=== PATIENT | male | born 1990 | race Caucasian/White ===

== ENCOUNTER 2018-03-13 13:17 | Outpatient (REF) | payer MEDICARE, MEDICAID, SELFPAY ==
[2018-03-13 19:51] LABS: Vitamin D 25 Total 18.5 ng/ml (30-100)
[2018-03-13 19:56] LABS: ALT 19 U/L (12-78); AST 20 U/L (15-37); Albumin 4.1 g/dL (3.4-5.0); Alkaline Phosphatase 86 U/L (46-116); Anion Gap 11.2 mmol/L (3-11); BUN 10 mg/dL (7-18); Bilirubin, Total 0.6 mg/dL (0.2-1.0); CO2 25.8 mmol/L (21.0-32.0); CREATININE 0.93 mg/dL (0.70-1.30); Calcium 9.4 mg/dL (8.5-10.1); Chloride 103 mmol/L (98-107); Cholesterol 217 mg/dL (50-200); Folate 12.7 ng/mL (8.6-20.0); Glucose 79 mg/dL (70-100); HDL Cholesterol 44 mg/dL (40-60); LDL CHOLESTEROL 158 mg/dL (<100); Potassium 4.2 mmol/L (3.5-5.1); Sodium 140 mmol/L (136-145); TSH (W/Ref FT4) 0.74 uIU/mL (0.358-3.74); Total Protein 7.5 g/dL (6.4-8.2); Triglyceride 56 mg/dL (30-150); Vitamin B12 230 pg/mL (193-986)
[2018-03-15 09:03] LABS: HIV-1/2 Ag & Ab Screen Negative (NEGAT)
[2018-03-15 09:20] LABS: Hepatitis C Ab w Rflx HCV PCR Negative (NEGAT)
[2018-03-15 10:20] LABS: Hepatitis B Surface Ag Negative (NEGAT)
[2018-03-15 12:02] LABS: Syphilis Serology (RPR) Negative (Negative)
== END 2018-03-13 13:37 ==
LOC: NCHCN 13:17
PROVIDERS: PCP Nurse Practitioner; Visit Provider Nurse Practitioner Family
DX: F41.0 Panic disorder [episodic paroxysmal anxiety] (principal); F31.73 Bipolar disorder, in partial remission, most recent episode manic; E55.9 Vitamin D deficiency, unspecified; E78.89 Other lipoprotein metabolism disorders; F43.10 Post-traumatic stress disorder, unspecified; F12.10 Cannabis abuse, uncomplicated; Z11.4 Encounter for screening for human immunodeficiency virus [HIV]; Z11.59 Encounter for screening for other viral diseases
CPT/HCPCS: 80053; 80061; 82306; 83721; 86803; 87340; 87389; 82607; 82746; 84443; 86592

== ENCOUNTER → 2019-07-25 13:12 | Outpatient (BNVA) | payer MEDICARE, MEDICAID, SELFPAY | PROVIDERS: PCP Nurse Practitioner; Referring Provider Nurse Practitioner; Visit Provider Psychiatry & Neurology Neurology | DX: R41.89 Other symptoms and signs involving cognitive functions and awareness (principal); R68.89 Other general symptoms and signs; R56.9 Unspecified convulsions | CPT/HCPCS: 99204; 99215 ==

== ENCOUNTER 2019-08-02 01:47 | Outpatient (CLI) | payer MEDICARE, MEDICAID, SELFPAY ==
--- NOTE | 2019-08-02 13:30 | DI.MRI_ITS ---
EXAM: MR BRAIN WO CLINICAL HISTORY: seizure R56.9 CONVULSIONS. TECHNIQUE: Multiplanar multisequence MRI was performed. COMPARISON: No exams were available for comparison FINDINGS: MR examination of brain was performed according to the usual protocol additional T2 weighted coronal imaging. Ventricular system is normal in appearance. There are numerous small focal areas of abnormal signal in periventricular and subcortical white matter, most markedly in the frontal lobes bilaterally. No other focal signal abnormality identified in the brain. No focal brainstem lesions. The orbital and temporal bone structures appear intact. Pituitary appears intact. There is normal flow void in the uhtuja-yg-Scwdvl vasculature. Diffusion weighted imaging shows no evidence of diffusion restriction. Susceptibility weighted imagi ng shows no evidence of intracranial hemorrhage. IMPRESSION: Bilateral white matter areas of abnormal signal, most prominent in right and left frontal lobes. Fin dings are nonspecific, including demyelinating process, infectious or inflammatory causes, sarcoidosi s, etc. Additional evaluation with contrast-enhanced brain MRI is suggested. DATA REPOSITORY:
== END 2019-08-02 02:07 ==
PROVIDERS: PCP Nurse Practitioner; Visit Provider Psychiatry & Neurology Neurology
DX: R56.9 Unspecified convulsions (principal); R90.82 White matter disease, unspecified
CPT/HCPCS: 70551

== ENCOUNTER 2019-08-06 03:41 | Outpatient (CLI) | payer MEDICARE, MEDICAID, SELFPAY ==
--- NOTE | 2019-08-14 09:05 | PDOC.EEG_ITS ---
Neurology EEG EEG: [facility] Department of Neurology LONG-TERM AMBULATORY EEG REPORT Date of Recordin08/06/19 at 13:37:49 to 08/07/19 at 13:12:38 Interpreting Physician: Dr. Adali Hebert PCP/Referring Provider: Vandana Paulson NP Reason for study: Mr. Horne is a 29 year-old man with a history of childhood seizures and a recent unwittnessed event of LOC. Current Medications: None. METHODS: An 18-channel digitized electroencephalogram was recorded in the ambulatory setting with video. The 10/20 international system of electrode placement was used and bipolar and referential electrode montages were recorded. In addition to EEG the patient was monitored for EKG and by video. Activation procedures of photic stimulation and hyperventilation were performed if applicable. The duration of the recording was ~23.5 hours. DESCRIPTION OF EEG: Waking background activity: During maximal wakefulness an 11-Hz posterior background rhythm was present which was well-modulated, symmetrical, reactive to eye opening, and of moderate voltage. Faster frequencies were present in the bilateral anterior head regions. There was a normal anterior-posterior voltage gradient. Drowsy and sleeping background activity: During drowsiness, there was attenuation of the posterior dominant background rhythm and vertex waves. Normal stage II and III sleep was present with symmetrical sleep spindles, K- complexes, and vertex waves with slowing of the background rhythm to delta/theta frequencies. REM sleep manifested by rapid lateral eye movements and faster background rhythms was recorded. Arousal was unremarkable. Interictal abnormalities: none. Ictal findings: No events recorded. Activating Procedures: Photic stimulation was performed which produced a symmetrical posterior driving response at various flash frequencies. Hyperventilation was performed with moderate effort and produced mild physiological slowing of the background. He briefly had a cold sensation in his head during this time. EKG: EKG revealed normal sinus rhythm. INTERPRETATION: This long-term EEG is normal during the awake and sleep states as well as during the activation procedures. PRIOR EEG: none CLINICAL CORRELATION: No focal regions of cerebral dysfunction or epileptiform activity was present. Epilepsy remains a clinical diagnosis and a normal EEG does not rule out epilepsy. Clinical correlation is advised. Adali Hebert MD
== END 2019-08-06 04:01 ==
PROVIDERS: PCP Nurse Practitioner; Visit Provider Psychiatry & Neurology Neurology
DX: R41.89 Other symptoms and signs involving cognitive functions and awareness (principal); Z86.69 Personal history of other diseases of the nervous system and sense organs; G40.909 Epilepsy, unspecified, not intractable, without status epilepticus
CPT/HCPCS: 95714; 95720

== ENCOUNTER → 2020-10-14 14:47 | Outpatient (BNVA) | payer MEDICARE, MEDICAID, SELFPAY | PROVIDERS: PCP Nurse Practitioner; Referring Provider Nurse Practitioner; Visit Provider Psychiatry & Neurology Neurology | DX: R93.0 Abnormal findings on diagnostic imaging of skull and head, not elsewhere classified (principal); R41.89 Other symptoms and signs involving cognitive functions and awareness; R73.03 Prediabetes | CPT/HCPCS: 99213 ==

== ENCOUNTER 2020-11-03 02:02 | Outpatient (CLI) | payer MEDICARE, MEDICAID, SELFPAY ==
--- NOTE | 2020-11-03 07:45 | DI.MRI_ITS ---
Exam(s) MR BRAIN WO EXAM: MR BRAIN WO CLINICAL HISTORY: abnNORMal brain MRI; looking for changes,R93.0 TECHNIQUE: Multiplanar multisequence MRI of the brain was performed. COMPARISON: MR MR BRAIN WO from 08/02/2019 FINDINGS: CEREBRAL PARENCHYMA: There is no evidence of intracranial hemorrhage, mass effect, or shift of midline structures. There are no extra-axial fluid collections. Ventricles are not enlarged or shifted. There is no significant focal signal abnormality in the cerebellar hemispheres nor within the peaec, m idbrain, and thalami. The previously described multiple small foci FLAIR bright signal foci in the periventricular and subc ortical white matter appear unchanged. No obvious new additional findings. No evidence of restricted diffusion on the diffusion imaging sequence. No evidence of microhemorrhag es on susceptibility imaging. PITUITARY GLAND: No mass nor parasellar abnormality. No obvious abnormality in the cavernous sinuses. FLOW VOIDS: The expected flow void are noted. No evidence of obvious aneurysm nor obvious vascular ma lformation. PARANASAL SINUSES: There is circumferential mucosal thickening in the inferior aspects of both maxill sophie sinuses, slightly more so than previous but not associated with fluid levels. Sphenoid sinuses a re clear. Mild mucosal thickening noted in the right frontal sinus and in the frontoethmoidal recess , more so than previous. ORBITS: No obvious findings. IMPRESSION: No significant change in the previously described white matter findings described on the MRI scan of the 08/02/2019. No new focal white matter findings. Mild increase in paranasal sinus disease, as described above. DATA REPOSITORY:
== END 2020-11-03 02:22 ==
PROVIDERS: PCP Nurse Practitioner; Visit Provider Psychiatry & Neurology Neurology
DX: R93.0 Abnormal findings on diagnostic imaging of skull and head, not elsewhere classified (principal)
CPT/HCPCS: 70551

== ENCOUNTER 2021-01-01 20:49 | Emergency (ER) | payer MEDICARE, MEDICAID, SELFPAY ==
[2021-01-01 20:50] VITALS: BP 139/80; PULSE 83; RESP 22; TEMP 36.8; O2SAT 100
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
[2021-01-01 21:20] LABS: Abs Immature Grans 0.02 10^3/uL (0.0-0.06); Absolute Basophil Count 0.02 10^3/uL (0.0-0.2); Absolute Eosinophil Count 0.02 10^3/uL (0.0-0.7); Absolute Lymphocyte Count 1.74 10^3/uL (1.2-3.4); Absolute Monocyte Count 0.45 10^3/uL (0.1-0.8); Absolute Neutrophil Count 3.87 10^3/uL (1.2-6.7); Basophils % 0.3; Eosinophils % 0.3; HCT 45.8 % (40.0-50.0); HGB 15.5 g/dL (13.5-17.5); Immature Grans % 0.3; Lymphocytes % 28.4; MCHC 33.8 % (32.0-36.0); MCV 88.8 fL (80-95); MPV 9.1 fL (8.0-11.0); Monocytes % 7.4; Neutrophils % 63.3; Nucleated RBC 0 %; Platelet Count 206 10^3/uL (130-400); RBC 5.16 10^6/uL (4.36-5.78); RDW 11.7 % (11.8-14.1); RDW-SD 38.1 fL; WBC 6.12 10^3/uL (4.4-10.8)
[2021-01-01] MEDS: Normal Saline 1,000 ML 1000 ML IV (21:23)
[2021-01-01] MEDS: Prochlorperazine 10 MG/2 ML VIAL IVP (21:23)
[2021-01-01 21:42] LABS: ALT 30 U/L (16-63); AST 26 U/L (15-37); Albumin 4.6 g/dL (3.4-5.0); Alkaline Phosphatase 92 U/L (46-116); Anion Gap 13.4 mmol/L (3-11); BUN 15 mg/dL (7-18); Bilirubin, Total 0.4 mg/dL (0.2-1.0); CO2 25.6 mmol/L (21.0-32.0); CREATININE 0.9 mg/dL (0.70-1.30); Calcium 9.6 mg/dL (8.5-10.1); Chloride 102 mmol/L (98-107); Glucose 104 mg/dL (74-106); Potassium 3.3 mmol/L (3.5-5.1); Sodium 141 mmol/L (136-145)
[2021-01-01 22:47] VITALS: BP 124/54; PULSE 68; RESP 20; TEMP 36.8; O2SAT 98
== END 2021-01-01 22:46 | disposition home or self-care (01) ==
PROVIDERS: Emergency Provider Emergency Medicine; PCP Nurse Practitioner
DX: R11.10 Vomiting, unspecified (principal); R20.2 Paresthesia of skin
CPT/HCPCS: 36415; 80053; 96361; 96374; 99284; 83735; 85025; 99283; J0780

== ENCOUNTER 2021-04-15 12:29 | Emergency (ER) | payer MEDICARE, MEDICAID, SELFPAY ==
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
[2021-04-15 12:37] VITALS: BP 143/92; PULSE 98; RESP 16; TEMP 36.9; O2SAT 97
[2021-04-15 13:03] LABS: Bilirubin Negative (Negative); Blood Negative (Negative); Clarity Clear (Clear); Glucose Negative (Negative); Ketones Negative (Negative); Leukocyte Esterase Negative (Negative); Nitrite Negative (Negative); Urobilinogen 0.2 EU/dL (Up TO 0.2); pH 8.5 (5-8)
[2021-04-16 15:12] LABS: Chlamydia Result Negative (Negative); GC Result Negative (Negative)
[2021-04-16 23:47] LABS: Source Urine; T.vaginalis, Misc, RNA Negative (Negative)
== END 2021-04-15 13:42 | disposition home or self-care (01) ==
PROVIDERS: Emergency Provider Physician Assistant; PCP Nurse Practitioner
DX: R30.0 Dysuria (principal)
CPT/HCPCS: 87491; 87591; 87661; 99283; 81003

== ENCOUNTER → 2021-07-13 10:49 | Outpatient (BNVA) | payer MEDICARE, MEDICAID, SELFPAY | PROVIDERS: PCP Nurse Practitioner; Referring Provider Nurse Practitioner; Visit Provider Urology | DX: R10.2 Pelvic and perineal pain (principal) | CPT/HCPCS: 99215 ==

== ENCOUNTER 2022-04-02 01:03 | Outpatient (CLI) | payer MEDICARE, MEDICAID, SELFPAY ==
--- NOTE | 2022-04-02 09:00 | DI.US_ITS ---
Exam(s) US SCROTUM EXAM: US SCROTUM CLINICAL HISTORY: CHRONIC TESTICULAR AND GROIN PAIN, R10.2; H/O LT HERNIA REPAIR. TECHNIQUE: Scrotal ultrasound performed using grayscale, color-flow and spectral Doppler analysis. COMPARISON: No exams were available for comparison FINDINGS: Right testicle: 4.4 x 2.3 x 2.8 cm Left testicle: 4.4 x 2.2 x 2.8 cm Echogenicity: Normal. Contour: Smooth. Mass: None seen. Microlithiasis: Single microlith left testicle Hydrocele: Right hydrocele measuring approximately 3.7 x 1.9 x 3.6 cm. Varicocele: Left varicocele Hernia: No peristalsing bowel loop identified. Epididymis: Normal. DOPPLER: Color: Symmetric and uniform, no hyperemia. Duplex: Bilateral testicular arterial waveforms visualized. IMPRESSION: Normal appearing bilateral testicles. Right hydrocele Mild left varicocele. DATA REPOSITORY:
== END 2022-04-02 01:23 ==
LOC: DI 01:03
PROVIDERS: PCP Nurse Practitioner; Visit Provider Nurse Practitioner Family
DX: N43.3 Hydrocele, unspecified (principal)
CPT/HCPCS: 76870

== ENCOUNTER 2022-09-30 19:59 | Outpatient (REF) | payer MEDICARE, MEDICAID, SELFPAY ==
[2022-09-30 21:02] LABS: Abs Immature Grans 0.02 10^3/uL (0.0-0.06); Absolute Basophil Count 0.05 10^3/uL (0.0-0.2); Absolute Eosinophil Count 0.11 10^3/uL (0.0-0.7); Absolute Lymphocyte Count 2.65 10^3/uL (1.2-3.4); Absolute Monocyte Count 0.58 10^3/uL (0.1-0.8); Basophils % 0.6; Eosinophils % 1.4; HCT 47.7 % (40.0-50.0); HGB 16.1 g/dL (13.5-17.5); Immature Grans % 0.2; Lymphocytes % 32.7; MCH 30.1 pg (27.0-33.0); MCHC 33.8 % (32.0-36.0); MCV 89 fL (80-95); MPV 9.9 fL (8.0-11.0); Monocytes % 7.2; Neutrophils % 57.9; Platelet Count 331 10^3/uL (130-400); RBC 5.35 10^6/uL (4.36-5.78); RDW 11.9 % (11.8-14.1); RDW-SD 38.7 fL; WBC 8.11 10^3/uL (4.4-10.8)
[2022-09-30 21:42] LABS: ALT 30 U/L (16-63); AST 23 U/L (15-37); Albumin 4.6 g/dL (3.4-5.0); Alkaline Phosphatase 93 U/L (46-116); Anion Gap 12.4 mmol/L (3-11); BUN 17 mg/dL (7-18); Bilirubin, Total 0.5 mg/dL (0.2-1.0); CO2 24.6 mmol/L (21.0-32.0); CREATININE 0.9 mg/dL (0.70-1.30); Calcium 9.9 mg/dL (8.5-10.1); Chloride 100 mmol/L (98-107); Estimated GFR 114.93 (mL/min/1.73m2); Glucose 89 mg/dL (74-106); Potassium 4.1 mmol/L (3.5-5.1); Sodium 137 mmol/L (136-145); TSH (W/Ref FT4) 0.77 uIU/mL (0.36-3.74); Vitamin B12 343 pg/mL (193-986)
[2022-09-30 21:43] LABS: Vitamin D 25 Total 28.7 ng/mL (30-100)
== END 2022-09-30 20:00 | disposition home or self-care (01) ==
LOC: NCHCN 19:59
PROVIDERS: PCP Nurse Practitioner; Visit Provider Nurse Practitioner Family
DX: R10.2 Pelvic and perineal pain (principal); F90.1 Attention-deficit hyperactivity disorder, predominantly hyperactive type; F31.73 Bipolar disorder, in partial remission, most recent episode manic; E55.9 Vitamin D deficiency, unspecified; Z79.899 Other long term (current) drug therapy; Z51.81 Encounter for therapeutic drug level monitoring; Z86.69 Personal history of other diseases of the nervous system and sense organs
CPT/HCPCS: 80053; 82306; 82607; 84443; 85025

== ENCOUNTER 2023-09-24 12:29 | Emergency (ER) | payer MEDICAID, SELFPAY ==
[2023-09-24 12:51] VITALS: BP 127/85; PULSE 99; RESP 20; TEMP 36.6; O2SAT 99
[2023-09-24] MEDS: Ketorolac 15 MG/ML VIAL IM (13:48)
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
== END 2023-09-24 14:02 | disposition home or self-care (01) ==
LOC: ER 14:05
PROVIDERS: Emergency Provider Physician Assistant
DX: M54.50 Low back pain, unspecified (principal); K04.7 Periapical abscess without sinus
CPT/HCPCS: 96372; 99284; J1885

== ENCOUNTER 2024-06-22 00:29 | Outpatient (CLI) | payer MEDICAID, SELFPAY ==
--- NOTE | 2024-06-22 | DI.RAD_ITS ---
Exam(s) XR LUMBAR SPINE COMPLETE EXAM: XR LUMBAR SPINE COMPLETE CLINICAL HISTORY: ACUTE ON CHRONIC LOW BACK PAIN,M54.50. TECHNIQUE: 2D digital imaging was performed. COMPARISON: No exams were available for comparison FINDINGS: Five views. There is transitional anatomy here with bilateral sacralization of the L5 segment evident. 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 There is no evidence of fracture or listhesis. No pars defects. No scoliosis. Small disc space at L5-S1 is most probably developmental related to the developmental sacralization of the L5 segment. T he other disc spaces exhibit normal height and facet joints appear unremarkable. Sacroiliac joints appear unremarkable. Bone density normal. No osseous lesions. 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 No other radiogra phic findings. Please note that sacralization of the L5 segment results in an additional stress upon the L4-5 level and higher incidence of disc herniations at the L4-5 level. If clinically indicated follow-up MRI can be performed. DATA REPOSITORY: RADIATION DOSE DELIVERED:
== END 2024-06-22 00:49 ==
PROVIDERS: PCP Nurse Practitioner Family; Visit Provider Physician Assistant Medical
DX: M54.50 Low back pain, unspecified (principal); R93.89 Abnormal findings on diagnostic imaging of other specified body structures
CPT/HCPCS: 72110

== ENCOUNTER → 2024-12-26 02:07 | Outpatient (CLI) | payer MEDICAID, SELFPAY ==
--- NOTE | 2024-12-26 | DI.MRI_ITS ---
Exam(s) MR LOWER JOINT BI WO EXAM: MR LOWER JOINT BI WO CLINICAL HISTORY: M25.551 Pain RT hip, LT HIP PAIN,M25.552 TECHNIQUE: Multiplanar multisequence MRI of the hip was performed. COMPARISON: No exams were available for comparison FINDINGS: BILATERAL HIPS: MARROW:There is no evidence of fracture, bone contusion, nor avascular necrosis. There are no significant osseous lesions.There is no significant osseous excrescence at the femoral head-neck junction to suggest the presence of cam- type JESSICA. HIP JOINT SPACE: There are no hip joint effusions. The amount of fluid within both hip joints is deemed be physiologic quantity. No obvious chondral defects.There is no hypertrophy of the ligamentum teres nor signal abnormality at the fovea centralis. LABRUM: No evidence of labral tears on either side. BURSAE: There is no evidence of trochanteric bursitis. There is no evidence of iliopsoas bursitis. TENDONS: No evidence of tendinitis nor tendon tears. ISCHIAL TUBEROSITY/HAMSTRING: There is no abnormal intraosseous signal in the ipsilateral ischial tuberosity nor tear of the common hamstrings tendon attachment site at this level. OTHER: There is no abnormal intramuscular signal within the quadratus femoris to suggest the presence of impingement syndrome at this level on either side. : IMPRESSION: Unremarkable bilateral hip MRI examination. DATA REPOSITORY:
--- NOTE | 2024-12-26 | DI.MRI_ITS ---
Exam(s) MR LUMBAR SPINE WO EXAM: MR LUMBAR SPINE WO CLINICAL HISTORY: M54.50 Spine pain lumbar. TECHNIQUE: Multiplanar multisequence MRI of the Lumbar spine was performed. COMPARISON: CR XR LUMBAR SPINE COMPLETE from 06/22/2024 FINDINGS: Recent plain films 06/22/2024 reveal bilateral sacralization of the L5 segment Conus medullaris is at normal T12-L1 level. There is no evidence of conus mass nor subjacent clumping of intrathecal nerve roots to suggest arachnoiditis. The distal thecal sac appears unremarkable.There is no evidence of Tarlov intrasacral cysts nor other significant findings within the sacral canal Bones:There are no fractures nor ominous osseous lesions in the lumbar vertebral bodies and visualized sacrum. Small intraosseous hemangioma is noted centrally in the L2 vertebral body, not clinically significant. With respect to the individual levels... T12-L1: Unremarkable L1-2: Normal disc height and signal. No disc herniation nor central canal stenosis.No foraminal stenosis L2-3: Normal disc height. No disc herniation nor central canal stenosis.No foraminal stenosis.No facet arthropathy. L3-4: Normal disc height. No disc herniation or central canal stenosis.No foraminal stenosis.No facet arthropathy. L4-5: Normal disc height. Some loss of normal disc hydration signal. Posteriorly there is broad relatively symmetrical annular bulging which indents the thecal sac and extends into the floor of the exiting neural foramina. However, there is no dominant asymmetric disc herniation nor central spinal c anal stenosis. There is also no significant foraminal stenosis at this level and no significant facet joint degenerative changes nor ligamentum flavum hypertrophy. L5-S1: Small rudimentary disc space which is developmental related to the sacralization. There is normal disc hydration signal at this level. There is no evidence of disc herniation or central canal stenosis and there is no foraminal stenosis at this level. Soft tissues: paraspinal soft tissues appear unremarkable. IMPRESSION: 1. There is broad relatively symmetrical annular bulging at L4-5 level which contacts the anterior thecal sac but the central canal dimensions remain within normal limits. There is also no significant foraminal stenosis at this level. 2. There is sacralization of the L5 segment and os a smaller than typical but otherwise unremarkable disc at the L5-S1 level. 3. The sacralization of the L5 segment as additional strain to the L4-5 level, and is most probably the etiology of the above described L4-5 focal findings. DATA REPOSITORY:
--- NOTE | 2024-12-26 16:59 | DI.VRAD_ITS ---
PROCEDURE INFORMATION: Exam: MR Right Lower Extremity Joint Without Contrast; Hip Exam date and time: 12/26/2024 10:09 AM Age: 34 years old Clinical indication: Other: Bilateral hip pain TECHNIQUE: Imaging protocol: Magnetic resonance imaging of the right lower extremity joint without contrast. Exam focused on the hip. COMPARISON: US SCROTUM 04/02/2022 9:01 AM FINDINGS: Bones/joints: Unremarkable. No bone abnormalities. Articular cartilage is normal. No joint effusion. Labrum: Unremarkable. No tear. TENDONS: Tendons of iliopsoas group: Unremarkable. No evidence of tear. Tendons of medial compartment of thigh: Unremarkable. No evidence of tear. Tendons of lateral rotators of hip: Unremarkable. No evidence of tear. Tendons of gluteal group: Unremarkable. No evidence of tear. Soft tissues: Unremarkable. IMPRESSION: Unremarkable MR Hip. PROCEDURE INFORMATION: Exam: MR Left Lower Extremity Joint Without Contrast; Hip Exam date and time: 12/26/2024 10:09 AM Age: 34 years old Clinical indication: Other: Bilateral hip pain TECHNIQUE: Imaging protocol: Magnetic resonance imaging of the left lower extremity joint without contrast. Exam focused on the hip. COMPARISON: US SCROTUM 04/02/2022 9:01 AM FINDINGS: Bones/joints: Unremarkable. No bone abnormalities. Articular cartilage is normal. No joint effusion. Labrum: Unremarkable. No tear. TENDONS: Tendons of iliopsoas group: Unremarkable. No evidence of tear. Tendons of medial compartment of thigh: Unremarkable. No evidence of tear. Tendons of lateral rotators of hip: Unremarkable. No evidence of tear. Tendons of gluteal group: Unremarkable. No evidence of tear. Soft tissues: Unremarkable. IMPRESSION: Unremarkable MR Hip. Dictated and Authenticated by: Ayaka Francisco MD. Orderin Mack Decker MD
== END ==
PROVIDERS: PCP Nurse Practitioner Family; Visit Provider Nurse Practitioner Family
DX: M25.551 Pain in right hip (principal); M25.552 Pain in left hip; M51.26 Other intervertebral disc displacement, lumbar region
CPT/HCPCS: 73721; 72148

== ENCOUNTER 2025-01-04 23:11 | Emergency (ER) | payer MEDICAID, SELFPAY ==
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
[2025-01-04 23:16] VITALS: BP 145/75; PULSE 90; RESP 18; TEMP 36.1; O2SAT 100
[2025-01-04] MEDS: Prochlorperazine 10 MG/2 ML VIAL IVP (23:43)
[2025-01-04 23:46] LABS: Abs Immature Grans 0.02 10^3/uL (0.0-0.06); HCT 42.1 % (40.0-50.0); HGB 14.3 g/dL (13.5-17.5); Immature Grans % 0.2 %; MCH 29.2 pg (27.0-33.0); MCHC 34.0 % (32.0-36.0); MCV 86 fL (80-95); MPV 8.8 fL (8.0-11.0); Platelet Count 289 10^3/uL (130-400); RBC 4.90 10^6/uL (4.36-5.78); RDW 11.9 % (11.8-14.1); RDW-SD 37.4 fL; WBC 10.36 10^3/uL (4.4-10.8)
[2025-01-04] MEDS: Normal Saline 1,000 ML 1000 ML IV (23:46)
[2025-01-05 00:02] LABS: Lipase 25 U/L (<53)
[2025-01-05 00:03] LABS: Magnesium 1.8 mg/dL (1.6-2.6)
[2025-01-05 00:05] LABS: ALT 30 U/L (10-49); AST 33 U/L (<34); Albumin 4.9 g/dL (3.2-5.0); Alkaline Phosphatase 120 U/L (46-116); Anion Gap 13.7 mmol/L (3-11); BUN 11 mg/dL (9-23); Bilirubin, Total 0.40 mg/dL (0.2-1.2); CO2 23.3 mmol/L (20.0-31.0); Calcium 10.0 mg/dL (8.3-10.6); Chloride 103 mmol/L (98-107); Glucose 154 mg/dL (74-106); Potassium 3.7 mmol/L (3.5-5.1); Sodium 140 mmol/L (136-145); Total Protein 8.2 g/dL (5.7-8.2)
[2025-01-05] MEDS: Ondansetron O.D.T. 4 MG TABEF, 3 TABS/BTL PO (00:54)
[2025-01-05 00:55] VITALS: BP 114/76; PULSE 77; RESP 18; O2SAT 98
== END 2025-01-05 00:57 | disposition home or self-care (01) ==
PROVIDERS: Emergency Provider Emergency Medicine; PCP Nurse Practitioner Family
DX: R11.2 Nausea with vomiting, unspecified (principal); K04.7 Periapical abscess without sinus
CPT/HCPCS: 36415; 80053; 83690; 96361; 96374; 99284; 83735; 85025; 99283; J0780